=== PATIENT | male | born 1985 | race Caucasian/White ===

== ENCOUNTER 2016-10-24 03:19 | Emergency (ER) ==
[2016-10-24 03:26] VITALS: BP 127/68; TEMP 97.6; BMI 19.7
--- NOTE | 2016-10-24 03:41 | ED.PDOC ---
General ED Provider: Dr. DAVID MCKEON-ER Chief Complaint: Non-specific Complaint Stated Complaint: i had sex with someone who might have chlamydia Time Seen by Physician: 03:39 Mode of Arrival: Walk-In Information Source: Patient Exam Limitations: No limitations Nursing and Triage Documentation Reviewed and Agree: Yes Complaint Exam - STD Male Complaint/Exam Onset/Duration: no symptoms Symptoms Are: Resolved Current Severity: None Character: Recent STD exposure Aggravating: Reports: None Alleviating: Reports: None Associated Signs and Symptoms: Denies: Dysuria, Penile sores, Scrotal pain, Scrotal swelling, Testicular pain, Testicular swelling Differential Diagnoses: Urethritis, STD Review of Systems - Review Of Systems Constitutional: Reports: No symptoms Eyes: Reports: No symptoms Ears, Nose, Mouth, Throat: Reports: No symptoms Respiratory: Reports: No symptoms Cardiac: Reports: No symptoms GI: Reports: No symptoms : Reports: No symptoms Musculoskeletal: Reports: No symptoms Skin: Reports: No symptoms Neurological: Reports: No symptoms Endocrine: Reports: No symptoms Hematologic/Lymphatic: Reports: No symptoms All Other Systems: Reviewed and Negative Past Medical History - Past Medical History Previously Healthy: Yes Endocrine: Reports: None Cardiovascular: Reports: None Respiratory: Reports: None Hematological: Reports: None Gastrointestinal: Reports: None Genitourinary: Reports: None Neuro/Psych: Reports: None Musculoskeletal: Reports: None Cancer: Reports: None - Surgical History General Surgical History: Reports: Unknown - Family History Family History: Reports: Unknown - Social History Smoking Status: Current every day smoker, Heavy tobacco smoker Hx Substance Use: No Alcohol Screening: Occasionally Lives: With family - Immunizations Tetanus Shot up to Date: No Physical Exam - Physical Exam Appearance: Well-appearing Eyes: DERRICK, EOMI, Conjunctiva clear ENT: Ears normal, Nose normal, Oropharynx normal Neck: Supple Respiratory: Airway patent, Breath sounds clear, Breath sounds equal, Respirations nonlabored Cardiovascular: RRR, Pulses normal, No rub, No murmur GI/: Soft, Nontender, No masses, Bowel sounds normal, No Organomegaly Musculoskeletal: Normal strength, ROM intact, No edema, No calf tenderness Skin: Warm, Dry, Normal color Neurological: Sensation intact, Motor intact, Reflexes intact, Cranial nerves intact, Alert, Oriented Psychiatric: Affect appropriate Critical Care Note - Critical Care Note Total Time (mins): 0 Course - Course Vital Signs: Temp Pulse Resp BP Pulse Ox 10/24/16 03:20 97.6 F 90 16 127/68 96 Departure - Departure Time of Disposition: 03:40 Disposition: HOME SELF-CARE Discharge Problem: STD exposure Instructions: Chlamydia (ED), Sexually Transmitted Diseases (ED) Condition: Good Pt referred to PMD for follow-up: No Additional Instructions: doxycycline 100mg bid x 7days-- Allergies/Adverse Reactions: Allergies guaifenesin [From Robitussin] Adverse Reaction (Verified 10/24/16 03:26) states "GIVES ME A HEADACHE" Home Medications: Ambulatory Orders 1 [No Reported Medications] 02/05/13 Disposition Discussed With: Patient
== END 2016-10-24 03:45 | disposition home or self-care (01) ==
LOC: ED 03:19
DX: Z20.2 Contact with and (suspected) exposure to infections with a predominantly sexual mode of transmission (principal); F17.210 Nicotine dependence, cigarettes, uncomplicated
CPT/HCPCS: 99282

== ENCOUNTER 2018-06-12 19:05 | Emergency (ER) ==
[2018-06-12 19:08] VITALS: BMI 18.7
[2018-06-12] MEDS ORDERED: TORADOL IM STA (19:33)
--- NOTE | 2018-06-12 19:33 | ED.PDOC ---
General ED Provider: Dr. FRANCISCO NOYOLA Chief Complaint: Urinary Problem Stated Complaint: Patient is a 33 year old male who states that he has been having some left testicular pain. Similar to last year when he was sent to [facility] and was found to have and abscess. States that the pain started two days ago and is worse when he stands or walks. Does not have a PCP. Time Seen by Physician: 19:22 Mode of Arrival: Walk-In Information Source: Patient Exam Limitations: No limitations Nursing and Triage Documentation Reviewed and Agree: Yes Does patient meet sepsis criteria?: Yes If yes, has appropriate treatment been initiated?: No System Inflammatory Response Syndrome: Pulse >90 BPM Sepsis Protocol: For patient's 13 years and over: Temp is 96.8 and below OR 101 and greater Pulse >90 BPM Resp >20/minute Acutely Altered Mental Status Are patient's symptoms suggestive of a new infection, such as: -Pneumonia -Skin, Soft Tissue -Endocarditis -UTI -Bone, Joint Infection -Implantable Device -Acute Abdominal Infection -Wound Infection -Meningitis -Blood Stream Catheter Infection -Unknown Complaint Exam - Complaint/Exam Patient Complains of: Reports: Scrotal pain Onset/Duration: 2 days Symptoms Are: Still present Timing: Constant Initial Severity: Moderate Current Severity: Severe Location of Pain: Reports: Scrotum, Testicle (left ) Character: Reports: Sharp, Dull Aggravating: Reports: Palpation Alleviating: Reports: None Associated Signs and Symptoms: Reports: Scrotal pain Testicular Torsion Risk Factors: Reports: None Surgical Obstruction Risk Factors: Reports: None Related Surgical History: Reports: None Abdominal Findings: Present: None Genitalia Exam: Present: Testes tender (on the left ). Absent: Testes asymmetrical, Mass, Scrotal swelling, Penile swelling, Penile lesions, Penile vesicles Differential Diagnoses: Epididymitis, Testicular Torsion Review of Systems - Review Of Systems Constitutional: Reports: No symptoms Eyes: Reports: No symptoms Ears, Nose, Mouth, Throat: Reports: No symptoms Respiratory: Reports: No symptoms Cardiac: Reports: No symptoms GI: Reports: No symptoms : Reports: Pain, Other (Left testicular pain and tenderness ). Denies: Burning, Dysuria, Discharge, Frequency, Flank pain, Hematuria, Incontinence, Urgency Musculoskeletal: Denies: Back pain Skin: Reports: No symptoms Neurological: Reports: Anxiety Endocrine: Reports: No symptoms Hematologic/Lymphatic: Reports: No symptoms All Other Systems: Reviewed and Negative Past Medical History - Past Medical History Previously Healthy: Yes Endocrine: Reports: None Cardiovascular: Reports: None Respiratory: Reports: None Hematological: Reports: None Gastrointestinal: Reports: None Genitourinary: Reports: Other (Left testicular abscess Last year ) Neuro/Psych: Reports: None Musculoskeletal: Reports: None Cancer: Reports: None - Surgical History General Surgical History: Reports: Unknown - Family History Family History: Reports: Unknown - Social History Smoking Status: Current every day smoker, Heavy tobacco smoker Hx Substance Use: No Alcohol Screening: Occasionally Physical Exam - Physical Exam Appearance: Ill-appearing Ill-appearing: Mild Pain Distress: Severe Respiratory: Airway patent, Breath sounds clear, Breath sounds equal, Respirations nonlabored Cardiovascular: Pulses normal, No rub, No murmur, Tachycardia GI/: Soft, Tender (Left testicual going up to the left groin with mild erythema. ) Musculoskeletal: Normal strength, ROM intact, No edema, No calf tenderness Skin: Warm, Dry, Normal color Neurological: Alert, Oriented Psychiatric: Anxious Re-Evaluation - Re-Evaluation Time of Re-Evaluation: 19:54 Status: Improved Vital Signs Stable: Yes (P 97 ) Pain Level: 5/10 Appearance: NAD Physician Notification - Case Discussed Physician Notified: Dr Larkin Time of Notification: 19:51 (accepted to [facility] for Further evaluation.) Critical Care Note - Critical Care Note Total Time (mins): 0 Course - Course Orders, Labs, Meds: Lab Review 06/12/18 19:30 Urine Color Yellow Urine Clarity Clear Urine pH 7.5 Ur Specific Finger 1.020 Urine Protein Negative Urine Glucose (UA) Negative Urine Ketones Negative Urine Blood Negative Urine Nitrite Negative Urine Bilirubin Negative Urine Urobilinogen 0.2 Ur Leukocyte Esterase Negative Orders Category Date Time Status URINALYSIS C & S IF INDICATED Stat LAB 06/12/18 19:30 Completed Ketorolac Tromethamine [Toradol] MEDS 06/12/18 19:33 Discontinued 60 mg IM ONCE STA Medications Discontinued Medications Generic Name Dose Route Start Last Admin Trade Name Freq PRN Reason Stop Dose Admin Ketorolac Tromethamine 60 mg 06/12/18 19:33 06/12/18 19:38 Toradol IM 06/12/18 19:34 60 mg ONCE STA Administration Vital Signs: Temp Pulse Resp BP Pulse Ox 06/12/18 19:05 98.8 F 119 H 18 117/84 97 Departure - Departure Time of Disposition: 19:50 Disposition: [facility]SF SHORT-TRM HOSP Discharge Problem: Orchitis of left testicle Condition: Fair Pt referred to PMD for follow-up: Yes IPMP verified?: No Allergies/Adverse Reactions: Allergies guaifenesin [From Robitussin] Adverse Reaction (Verified 06/12/18 19:08) states "GIVES ME A HEADACHE" Home Medications: Ambulatory Orders 1 [No Reported Medications] 02/05/13 Pt. Stabilized Within Hospital's Capabilities/Transferred To: [facility] Disposition Discussed With: Patient
[2018-06-12 19:55] VITALS: BP 104/70; TEMP 98.6
== END 2018-06-12 20:02 | disposition short-term general hospital (02) ==
LOC: ED 19:05
DX: N45.2 Orchitis (principal); F17.210 Nicotine dependence, cigarettes, uncomplicated
CPT/HCPCS: 81001; 96372; 99285